=== PATIENT | female | born 1960 | race Hispanic/Latino ===

== ENCOUNTER 2023-09-10 09:51 | Emergency (ER) | payer BC ==
[~2023-09-10] VITALS: Ht 154.9 cm; Wt 88.5 kg
[2023-09-10 09:56] VITALS: BP 148/75; PULSE 56; RESP 16; O2SAT 99
[2023-09-10] MEDS ORDERED: DEXAMETHASONE SOD PHOSPHATE 4 MG/ML 1ML VIAL IM ONE (10:30)
[2023-09-10] MEDS ORDERED: HYDROCODONE/ACETAMINOPHEN 5/325 MG TAB PO ONE (10:30)
[2023-09-10] MEDS ORDERED: KETOROLAC 30MG VIAL (30MG/ML) IM ONE (10:30)
[2023-09-10] MEDS ORDERED: IBUP-2071 PO (11:28)
== END 2023-09-10 11:55 | disposition home or self-care (01) ==
LOC: EDH 09:51
DX: M25.552 Pain in left hip (principal); M54.50 Low back pain, unspecified; M62.830 Muscle spasm of back; Z90.49 Acquired absence of other specified parts of digestive tract
CPT/HCPCS: 99284; 72190; 96372 ×2; J1100; J1885